=== PATIENT | male | born 1990 | race Caucasian/White ===

== ENCOUNTER 2022-10-09 17:55 | Emergency (ER) | payer OTHER ==
--- OUTSIDE RECORDS SUMMARY | 2022-10-09 18:00 | XMS REPORT | Continuity of Care Document ---
:[address] [facility] t Address [address] [place] [address] [address] [place] [address] Care Team Providers Name Role Phone Mercedes Joaquim Saldana Primary Care Physician HARDEEP PARK Attending Clinician Unavailable Mirella RIZO Attending Clinician Unavailable Mirella Gonzalez Attending Clinician Doctor Unassigned, [place] Attending Clinician Unavailable Janelle Pierre RN Attending Clinician Unavailable Only, Ang Db Test Attending Clinician Unavailable Chetan Mckee Attending Clinician CHETAN JARA Attending Clinician Unavailable ADRIANO JACOBS Attending Clinician Unavailable Adriano Jacobs Attending Clinician Mirella RIZO Admitting Clinician Unavailable Payers Payer Name Policy Type Policy Number Effective Date Expiration Date Ashleigh SAG[employer]UME [place] [id number] 2021 [employer]OYEE-[employer] 00:00:00 Problems Condition Condition Condition Status Onset Resolution Last Treating Co mments Source Name Details Category Date Date Treatment Clinician Date UNK UNK Diagnosis Active 2021-07-13 Mem oria Active 05-19 09:34:00 l 05/19/2021 00:00: Dani n [address] Sleep Sleep Problem Active Common disturbanc disturbanc Sp ruth e e - [facility] Essential Essential Problem Active Com mon (primary) (primary) Spir it hypertensi hypertensi - [facility] on on [facility] ADHD ADHD Diagnosis Active 2018-01-11 Mem oria (attention (attention 05:37:03 l deficit deficit [place] hyperactiv hyperactiv ity ity disorder), disorder), combined combined type type Active Diagnosis 01/11/2018 eCW: Fani Cruz MD, PA Hyperlipid Problem Active 2021-05-29 emoria emia Hyperlipid 07:46:50 l (disorder) emia Dani n (disorder) Active Problem 05/29/2021 [facility] Hypertensi Hypertens Problem Active 2021-05-29 Memoria ve justin 07:46:50 l disorder, disorder, Herm denilson systemic systemic arterial arterial (disorder) (disorder) Active Problem 05/29/2021 [facility] GERD GERD Problem Active Common without without Spirit esophagiti esophagiti - [facility] s [facility] Attention Attention Problem Active Com mon deficit deficit Spirit hyperactiv hyperactiv - [facility] ity ity [facility] disorder disorder [facility] (ADHD), (ADHD), Medical unspecifie unspecifie Ce nter d ADHD d ADHD type type Seasonal Seasonal Problem Active Commo n allergies allergies Spir [facility] History of History of Problem Active C ommon anxiety anxiety [facility] Allergies, Adverse Reactions, Alerts Allergy Allergy Status Severity Reaction(s) Onset Inactive Treating Comm ents Source Name Type Date Date Clinician Sulfa Sulfa Active as a child Memori a 3-26 l 00:00: [place] 00 SULFA Drug Active Unknown-Cmnt Univ ers (SULFONA Class 3-27 ity of MIDE 00:00: [place] ANTIBIOT 00 Medical ICS) Branch Sulfa Propensi Active Unknown - Unive rs (Sulfona ty to See comments 3-27 it y of mide adverse 00:00: [place] Antibiot reaction 00 Medica l ics) s Branch sulfa sulfa Active Memoria drugs drugs l [place] NO KNOWN Drug Active Univers ALLERGIE Class ity of [facility] Sulfa Adverse Active Info Not Common Reaction Available Spiri t - [facility] Social History Social Habit Start Date Stop Date Quantity Comments Source Exposure to 2021-11-18 2021-11-28 Not sure [facility] SARS-CoV-2 (event) 00:00:00 20:32:00 Medica l Branch Social History 2021-05-23 2021-05-23 [facility] 13:25:37 13:25:37 Sex Ass[birth year] At [birth year] [facility] 00:00:00 00:00:00 Medical Branch Smoking Status Start Date Stop Date Source Tobacco smoking consumption [facility] Medical unknown Branch Medications Ordered Filled Start Stop Current Ordering Indication Dosage Frequency Signature Comments Components Source Medication Medication Date Date Medication? Clinician (SIG) Name Name methylpredn 2021-02 No 125mg 125 mg, U nivers isolone sod 11-29 Slow IV ity of succ 02:30: 01:23 Push, [place] (SOLU-MEDRO 00 :00 ONCE, 1 Medic al L) dose, On Branch injection Tue 125 mg 11/28/21 at 2130, ABILIO maalox:diph 2021-02 No 15mL 15 mL, Uni vers enhydrAMINE 11-29 Oral ity of :lidocaine 01:30: 00:22 [place] % viscous 00 :00 Swallow), Med ical 1:1:1 ONCE, 1 Branch (FIRST-MOUT dose, On HWASH BLM) Tue oral 11/28/21 suspension at 2030, 15 mL Routine ketorolac 2021-02 No 15mg 15 mg, Unive rs (TORADOL) 11-28 Slow IV ity of injection 00:30: 23:52 [place], [place] 15 mg 00 :00 ONCE, 1 Medical dose, On Branch 11/28/21 at 1930, ABILIO predniSONE 2021-02 Yes [id number] 1 PO BID x Univers 20 mg 0-11 4 days ity of tablet 00:00: [place] 00 Medical Branch Dilaudid No 0.5 mg, Memori a - Route: l 19:15: IVP, ONCE, Ernesto Dosing Weight 138.182, kg, Priority: STAT, Start date: 05/25/21 14:15:00 CDT, Stop date: 05/25/21 14:15:00 CDT Dilaudid 2021-0 No 0.5 mg, Memori a 05-25 Route: l 19:15: IVP, ONCE, Dosing Weight 138.182, kg, Priority: STAT, Start date: 05/25/21 14:15:00 CDT, Stop date: 05/25/21 14:15:00 CDT hydromorpho 2021-0 No 0.5 mg, Mem oria ne 05-25 Route: l 18:31: IVP, ONCE, Dosing Weight 138.182, kg, Priority: STAT, Start date: 05/25/21 13:31:00 CDT, Stop date: 05/25/21 13:31:00 CDT hydromorpho 2021-0 No 0.5 mg, Mem oria ne 05-25 Route: l 18:31: IVP, ONCE, Dosing Weight 138.182, kg, Priority: STAT, Start date: 05/25/21 13:31:00 CDT, Stop date: 05/25/21 13:31:00 CDT ANES 2021-0 No 25 Memoria fentaNYL - microgram, l 18:19: Route: IVP, Q5Min, Dosing Weight 138.182, kg, PRN Pain Score 4-6, Priority: Routine, Start date: 05/25/21 13:19:00 CDT, Duration: 4 doses or times, Stop date: Limited # of times ANES 2021-0 No 10 mg, Memoria oxyCODONE 5 05-25 Route: PO, l mg 18:19: Drug form: [place] immediate 00 TAB, Q4H, release Dosing tablet Weight 138.182, kg, PRN Pain Score 7-10, Start date: 05/25/21 13:19:00 CDT, Duration: 30 day, Stop date: 06/24/21 13:18:00 CDT ANES 2021-0 No 0.2 mg, Memoria flumazenil 05-25 Route: l 18:19: IVP, PRN, Dosing Weight 138.182, kg, PRN Benzodiaze pine Reversal, Initial dose, Start date: 05/25/21 13:19:00 CDT, Duration: 30 day, Stop date: 06/24/21 13:18:00 CDT ANES 0 No 0.4 mg, Memoria naloxone - Route: l 18:19: IVP, [place] 00 Q2MIN, Dosing Weight 138.182, kg, PRN Narcotic Reversal, Start date: 05/25/21 13:19:00 CDT, Duration: 8 doses or times, Stop date: Limited # of times ANES 0 No 4 mg, Memoria ondansetron 4- Route: l 18:19: IVP, ONCE, [place] 00 Dosing Weight 138.182, kg, PRN Nausea & Vomiting, Start date: 05/25/21 13:19:00 CDT ANES 0 No 25 Memoria fentaNYL 4-07 microgram, l 18:19: Route: Ern[place] 00 IVP, Q5Min, Dosing Weight 138.182, kg, PRN Pain Score 4-6, Priority: Routine, Start date: 05/25/21 13:19:00 CDT, Duration: 4 doses or times, Stop date: Limited # of times ANES 0 No 10 mg, Memoria oxyCODONE 5 4-07 Route: PO, l mg 18:19: Drug form: [place] immediate 00 TAB, Q4H, release Dosing tablet Weight 138.182, kg, PRN Pain Score 7-10, Start date: 05/25/21 13:19:00 CDT, Duration: 30 day, Stop date: 06/24/21 13:18:00 CDT ANES 0 No 0.2 mg, Memoria flumazenil 4- Route: l 18:19: IVP, PRN, [place] 00 Dosing Weight 138.182, kg, PRN Benzodiaze pine Reversal, Initial dose, Start date: 05/25/21 13:19:00 CDT, Duration: 30 day, Stop date: 06/24/21 13:18:00 CDT ANES 0 No 0.4 mg, Memoria naloxone 05-25 Route: l 18:19: IVP, [place] 00 Q2MIN, Dosing Weight 138.182, kg, PRN Narcotic Reversal, Start date: 05/25/21 13:19:00 CDT, Duration: 8 doses or times, Stop date: Limited # of times ANES 2021-0 No 4 mg, Memoria ondansetron 05-25 Route: l 18:19: IVP, ONCE, Dosing Weight 138.182, kg, PRN Nausea & Vomiting, Start date: 05/25/21 13:19:00 CDT metoclopram 0 No Route: IV, Memoria adams (ANES) 05-25 Drug form: l 18:04: INJ, ONCE, Stop date: 05/25/21 13:04:00 CDT famotidine No Route: IV, M emoria (ANES) 05-25 Drug form: l 18:04: INJ, ONCE, Stop date: 05/25/21 13:04:00 CDT midazolam 2021-0 No Route: IV, Me moria (ANES) 05-25 Drug form: l 18:04: SOLN, ONCE, Stop date: 05/25/21 13:04:00 CDT fentaNYL 2021-0 No Route: IV, Mem oria (ANES) 05-25 Drug form: l 18:04: INJ, ONCE, Stop date: 05/25/21 13:04:00 CDT propofol 2021-0 No Route: IV, Mem oria (ANES) 05-25 Drug form: l 18:04: INJ, ONCE, Stop date: 05/25/21 13:04:00 CDT ceFAZolin No Route: IV, Me moria (ANES) 05-25 Drug form: l 18:04: INJ, ONCE, Stop date: 05/25/21 13:04:00 CDT dexamethaso 2021-0 No Route: IV, Memoria ne (ANES) 05-25 Drug form: l 18:04: INJ, ONCE, Stop date: 05/25/21 13:04:00 CDT ondansetron 2021-0 No Route: IV, Memoria (ANES) 05-25 Drug form: l 18:04: INJ, ONCE, Stop date: 05/25/21 13:04:00 CDT ketOROLAC 2022-0 No IV, ONCE [address] (ANES) 05-25 l 18:04: metoclopram No Route: IV, Memoria adams (ANES) 05-25 Drug form: l 18:04: INJ, ONCE, Stop date: 05/25/21 13:04:00 CDT famotidine No Route: IV, M emoria (ANES) 05-25 Drug form: l 18:04: INJ, ONCE, Stop date: 05/25/21 13:04:00 CDT midazolam No Route: IV, Me moria (ANES) 05-25 Drug form: l 18:04: SOLN, ONCE, Stop date: 05/25/21 13:04:00 CDT fentaNYL No Route: IV, Mem oria (ANES) 05-25 Drug form: l 18:04: INJ, ONCE, Stop date: 05/25/21 13:04:00 CDT propofol No Route: IV, Mem oria (ANES) 05-25 Drug form: l 18:04: INJ, ONCE, Stop date: 05/25/21 13:04:00 CDT ceFAZolin No Route: IV, Me moria (ANES) 05-25 Drug form: l 18:04: INJ, ONCE, Stop date: 05/25/21 13:04:00 CDT dexamethaso No Route: IV, Memoria ne (ANES) 05-25 Drug form: l 18:04: INJ, ONCE, Stop date: 05/25/21 13:04:00 CDT ondansetron No Route: IV, Memoria (ANES) 05-25 Drug form: l 18:04: INJ, ONCE, Stop date: 05/25/21 13:04:00 CDT ketOROLAC No IV, ONCE [address] (ANES) 05-25 l 18:04: Ern[place] 00 Lactated No Route: IV, Mem oria Ring[place] 05-25 Total l Injection 17:23: Volume: Sabiha nn IV (ANES) 00 1,000, 1000 mL Start date: 05/25/21 12:23:00 CDT, Stop date: 05/25/21 13:23:00 CDT Lactated 0 No Route: IV, Mem oria Ring[place] 4-07 Total l Injection 17:23: Volume: Sabiha nn IV (ANES) 00 1,000, 1000 mL Start date: 05/25/21 12:23:00 CDT, Stop date: 05/25/21 13:23:00 CDT [place] 2021-0 Yes 1 tab, PO, Memori a 10/325 oral 4-07 Q6H, 0 l tablet 14:21: Refill(s) Dani n 00 [place] 2021-0 Yes 1 tab, PO, Memori a 10/325 oral 4-07 Q6H, 0 l tablet 14:21: Refill(s) Dani n 00 Keflex 0 Yes PO, 0 Memoria 4-07 Refill(s) l 14:20: Ern[place] 00 Keflex 0 Yes PO, 0 Memoria 4-07 Refill(s) l 14:20: [place] 00 Lactated 0 No 1,000 mL, [address] Ringers 4-07 Rate: 75 l Injection 14:18: ml/hr, Dani n IV 1000 mL 00 Infuse over: 13.3 hr, Route: IV, Dosing Weight 138.182 kg, Total Volume: 1,000, Start date: 05/25/21 9:18:00 CDT, Duration: 30 day, Stop date: 06/24/21 9:17:00 CDT, BSA: 2.71 m2 Lactated 0 No 1,000 mL, [address] Ring[place] 4-07 Rate: 75 l Injection 14:18: ml/hr, Dani n IV 1000 mL 00 Infuse over: 13.3 hr, Route: IV, Dosing Weight 138.182 kg, Total Volume: 1,000, Start date: 05/25/21 9:18:00 CDT, Duration: 30 day, Stop date: 06/24/21 9:17:00 CDT, BSA: 2.71 m2 non-formula 0 Yes PROFIDREN, Memoria ry 4-05 Refill(s) l 13:29: 0 [place] 00 non-formula Yes PROFIDREN, Ruslanoria ry 4-05 Refill(s) l 13:29: 0 [place] 00 non-formula Yes BISJosh REA emoria ry 4-05 PO, Daily, l 13:27: Refill(s) Ernesto 0 Crestor 2021-0 Yes PO, Daily, [address] 4-05 0 l 13:27: Refill(s) Ern[place] 00 non-formula Yes BISTOLICJosh emoria ry 4-05 PO, Daily, l 13:27: Refill(s) Ernesto 0 Crestor 2021-0 Yes PO, Daily, [address] 4-05 0 l 13:27: Refill(s) Lisinopril Lisinopril Yes Frank 1 tablet Common 2-20 Darrick Spirit 00:00: - [facility] 00 [facility] Adderall 2017-02 Yes AMANDO 1 tablet Me moria 1-24 FLETCHER in the l 05:37: morning Adderall 2017-02 Yes AMANDO 1 tablet Me moria 1-24 FLECTHER in the l 05:37: morning Fluticasone Fluticasone Yes Frank 1 spray in Common Propionate Propionate 8-28 Darrick each Sp ruth 00:00: nostril - [facility]I 00 [facility] cyclobenzap 2015-0 Yes 5mg Take 1 Tab Univers rine 3-27 by mouth 3 ity of (FLEXERIL) 00:00: (three[place] 5 mg tablet 00 times Medical daily. Branch proMETHazin Yes 25mg Take 1 Tab Univers e 3-27 by mouth ity of (PHENERGAN) 00:00: every 6 Lexa as 25 mg 00 (six) Medical tablet hours as Branch needed for Nausea and Vomiting (N/V). traMADOL Yes 50mg Take 1 Tab Uni vers (ULTRAM) 50 3-27 by mouth ity of mg tablet 00:00: every 6 [place] 00 (six) Medical hours as Branch needed for Pain (scale 4-6). Maikel Lebron PA-C / Ba Lentz MD CHAI# [id number] DPS# [id number] x Lic.# [id number] NPI# [id number] cyclobenzap 2016-0 Yes 5mg Take 1 Tab Univers rine 3-27 by mouth 3 ity of (FLEXERIL) 00:00: (three) [place] 5 mg tablet 00 times Medical daily. Branch proMETHazin 2015-0 Yes 25mg Take 1 Tab Univers e 3-27 by mouth ity of (PHENERGAN) 00:00: every 6 Lex[place] as 25 mg 00 (six) Medical tablet hours as Branch needed for Nausea and Vomiting (N/V). traMADOL 0 Yes 50mg Take 1 Tab Uni vers (ULTRAM) 50 3-27 by mouth ity of mg tablet 00:00: every 6 [place] 00 (six) Medical hours as Branch needed for Pain (scale 4-6). 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 sity of pressure [facility] Diastolic blood 2021-11-28 23:37:00 90 mm[Hg] [facility] Heart rate 2021-11-28 23:37:00 82 /min [facility] Respiratory rate 2021-11-28 23:37:00 20 /min [facility] Oxygen saturation in 2021-11-28 23:37:00 96 /min [facility] Arterial blood by [facility] Pulse oximetry Branch Body temperature 2021-11-28 21:15:00 36.94 Aarti [facility] Body height 2021-11-28 21:15:00 188 cm [facility] Body weight 2021-11-28 21:15:00 136.079 kg [facility] BMI 2021-11-28 21:15:00 38.52 kg/m2 [facility] Systolic (mm Hg) 2021-05-25 19:30:00 Edvin rial [place] Diastolic (mm Hg) 2021-05-25 19:30:00 Mem orial [place] Systolic (mm Hg) 2021-05-25 19:00:00 Edvin rial Ernesto Diastolic (mm Hg) 2021-05-25 19:00:00 Mem orial Ernesto Systolic (mm Hg) 2021-05-25 18:45:00 Edvin rial Ernesto Diastolic (mm Hg) 2021-05-25 18:45:00 Mem orial Ernesto Respitory Rate 2021-05-25 18:38:00 Memori al [place] Respitory Rate 2021-05-25 18:23:00 Memori al Ernesto Respitory Rate 2021-05-25 18:06:00 Memori al Ernesto Heart Rate 2021-05-25 14:22:00 Memorial [place] Height 2021-05-23 12:22:00 187.96 cm [facility] [place] Weight 2021-05-23 12:22:00 Memorial Ernesto BMI Calculated 2021-05-23 12:22:00 Memori al Ernesto Diastolic (mm Hg) 2017-05-13 15:30:00 Mem orial Ernesto Systolic (mm Hg) 2017-05-13 15:30:00 Edvin rial Ernesto Temperature Oral (F) 2017-05-13 15:30:00 97.0 F Memorial Ernesto Weight 2017-05-13 15:30:00 Memorial Ernesto Height 2017-05-13 15:30:00 Memorial Ernesto Diastolic (mm Hg) 2017-01-08 20:30:00 Mem orial Ernesto Systolic (mm Hg) 2017-01-08 20:30:00 Edvin rial [place] Temperature Oral (F) 2017-01-08 20:30:00 98 F Memorial Ernesto Heart Rate 2017-01-08 20:30:00 [facility] [place] Weight 2017-01-08 20:30:00 Memorial Ernesto Height 2017-01-08 20:30:00 [facility] [place] Procedures Procedure Date / Time Performed Performing Clinician Sourc e XR CHEST 1 VW 2021-11-28 22:43:00 Mirella Rizo [place] o f [facility] MAGNESIUM 2021-11-28 21:59:00 Mirella Rizo Alice [place] o [facility] [place] [facility] TROPONIN I 2021-11-28 21:59:00 Mirella Rizo Alice [facility] COMP. METABOLIC PANEL 2021-11-28 21:59:00 Mirella Rizo [facility] ([id number]) Medical Branch CBC WITH DIFF 2021-11-28 21:59:00 Mirella Rizo Alice [facility] D-DIMER 2021-11-28 21:59:00 Mirella Rizo [facility] URINALYSIS 2021-11-28 21:59:00 Mirella Rizo [facility] N-TERMINAL PRO-BNP 2021-11-28 21:59:00 Mirella Rizo [facility] CONSENT/REFUSAL FOR 2021-11-28 20:57:00 Doctor Unakamilleigned, No Un [facility] DIAGNOSIS AND Name Medical Branch TREATMENT Encounters Start End Encounter Admission Attending Care Care Encounter Source Date/Time Date/Time Type Type Clinicians Facility Department ID 2021-05-16 Outpatient [facility] [id number] [place] 16:54:50 [id number] Health 2022-01-03 2022-01-03 Outpatient Robbin [facility] [id number] Univers 09:20:00 09:20:00 HARDEEP khannay o [facility] [place] [facility] 2021-11-28 2021-11-28 Emergency X Mirella RIZO [facility] ERT [id number] Univers 16:21:00 20:34:00 ity of [facility] 2021-11-28 2021-11-28 Emergency Mirella Rizo [facility] [id number] Univers 16:21:00 20:34:00 Alice COYLE 350.1.13.10 i ty of [facility] 4.2.7.2.686 [facility] [id number] [facility] 084 Branch 2021-11-28 2021-11-28 Orders Doctor MCMANUS [id number] Univers 00:00:00 00:00:00 Only UnassignedRIC 350.1.13.10 ity of [place] [facility] 4.2.7.2.686 Lexa as [id number] [facility] 009 [place] 2021-08-10 2021-08-10 Telephone MARIETTA Pierre [id number] Univers 00:00:00 00:00:00 Janelle LARIOS 350.1.13.10 i ty of HOSPITAL 4.2.7.2.686 Lexa as [id number] [facility] 019 [place] 2021-08-08 2021-08-08 Laboratory Only, Ang Db Test [facility] 1.2.8 [id number] Univers 15:15:00 15:30:00 Only Chetan Jara [facility] 350.1.13.10 ity of [place] 4.2.7.2.686 Lexa as TYLER?BLEA [id number] [address] MEDICAL OFFICE BUILDING 2021-08-08 2021-08-08 Outpatient R JONG [facility] [id number] Univers 15:15:00 15:15:00 CHETAN lopez o f [facility] 2021-08-08 2021-08-08 Letter Doctor MARIETTA [id number] Univers 00:00:00 00:00:00 (Out) UnassignedRIC 350.1.13.10 ity of [place] [facility] 4.2.7.2.686 Lexa as [id number] [facility] 044 [place] 2021-08-08 2021-08-08 Letter Doctor MARIETTA [id number] Univers 00:00:00 00:00:00 (Out) UnassignedRIC 350.1.13.10 ity of [place] [facility] 4.2.7.2.686 Lexa as [id number] [facility] 044 [place] 2021-05-25 2021-05-25 Day [facility] [id number] Memoria 13:32:00 20:00:00 Surgery r [place] 00 l [facility] 2021-05-25 2021-05-25 Day [facility] [id number] Memoria 13:32:00 20:00:00 Surgery r Ern[place] 00 l [facility] 2021-05-25 2021-05-25 Outpatient JACOBS, MHSE MHSE [id number] MH 08:32:00 15:00:00 ADRIANO lazo [facility] 2021-05-25 2021-05-25 Outpatient Jacobs, MHSE MHSE [id number] 08:32:00 15:00:00 Adriano Oakes 2021-05-25 2021-05-25 Outpatient Jacobs, MHSE MHSE [id number] 08:32:00 15:00:00 Adriano Oakes 2018-08-18 2018-08-18 Outpatient [facility] [id number] Common 09:45:00 09:45:00 t [facility] [address] [facility] it Road [facility] 2018-06-09 2018-06-09 Outpatient [facility] [id number] Common 10:15:00 10:15:00 t [facility] [address] [facility] it Road [facility] 2018-04-09 2018-04-09 Outpatient [facility] [id number] Common 13:15:00 13:15:00 t [facility] it Road [facility] 2018-02-06 2018-02-06 Outpatient [facility] [id number] Common 10:00:00 10:00:00 t [facility] it Road [facility] 2018-02-03 2018-02-03 Outpatient [facility] [id number] Common 16:31:00 16:31:00 t [facility] [address] [facility] it Road [facility] 2017-10-15 2017-10-15 Outpatient [facility] [id number] Common 14:00:00 14:00:00 t [facility] [address] [facility] it Road [facility] 2017-05-13 2017-05-13 Outpatient Fani Fani [id number] eClinic 09:30:00 09:30:00 Anthony Otoole MD 2017-01-16 2017-01-16 Outpatient Fani Fani [id number] eClinic 08:39:00 08:39:00 Anthony Otoole MD 2017-01-08 2017-01-08 Outpatient Fani Fani [id number] eClinic 14:30:00 14:30:00 Anthony Otoole MD Results Test Description Test Time Test Comments Results Result Comments Source TROPONIN I 2021-11-28 22:48:12 Test Item Value Reference Range Interpretation Comme nts TROPONIN I (test code = 0.003 ng/mL See_Comment [Au tomated message] The [id number]) system which ge nerated this result tra nsmitted reference range : <=0.034. The reference r thalia was not used to int erpret this result as normal/abnormal . NEGRITO (test code = NEGRITO) Reference (Normal) Range (defined by the 99th percentile reference limit): <= 0.034 ng/mL Note: Cardiac troponin begins to rise 3-4 hours after the onset of ischemia. Repeat in 4-6 hours if the sample was drawn within 3-4 hours of the onset of the symptom and found normal. Diagnosis of myocardial injury is made with acute changes in cTn concentrations with at least one serial sample above the 99th percentile upper reference limit (URL), taken together with the patient's clinical presentation. Biotin has been reported to cause a negative bias, interpret results relative to patient's use of biotin. Lab Interpretation Normal (test code = 50382-8) [facility] [place] [facility] [id number] 22:44:51 Test Item Value Reference Range Interpretation Comments NT-proBNP (test code 18 pg/mL See_Comment [Autom ated = [id number]) message] The system which generated this result transmitted reference range : <=125. The reference range was not used to interpret this result as normal/abnormal . NEGRITO (test code = NEGRITO) Biotin has been reported to cause a negative bias, interpret results relative to patient's use of biotin. Lab Interpretation Normal (test code = 24904-3) [facility] [place] [facility]OLIC PANEL ([id number])2021-11-28 22:36:07 Test Item Value Reference Range Interpretation Comments NA (test code = 139 mmol/L 135-145 6347435703) K (test code = 4.4 mmol/L 3.5-5 2243616269) CL (test code = 102 mmol/L 98-108 5874854390) CO2 TOTAL (test code 26 mmol/L 23-31 = 0762081939) AGAP (test code = 2-16 0866005789) BUN (test code = 12 mg/dL 7-23 7917878821) GLUCOSE (test code = 85 mg/dL 70-110 3869724631) CREATININE (test code 0.87 mg/dL 0.6-1.25 = 7666602012) TOTAL BILI (test code 0.6 mg/dL 0.1-1.1 = 2751589728) CALCIUM (test code = 9.7 mg/dL 8.6-10.6 8625126241) T PROTEIN (test code 7.4 g/dL 6.3-8.2 = 8122362388) ALBUMIN (test code = 4.6 g/dL 3.5-5 4044813894) ALK PHOS (test code = 81 U/L 34-122 2160023369) ALTv (test code = 39 U/L 5-50 1742-6) AST(SGOT) (test code 28 U/L 13-40 = 1301948030) eGFR (test code = mL/min/1.73m2 6705685826) NEGRITO (test code = NEGRITO) Association of Glomerular Filtration Rate (GFR) and Staging of Kidney Disease* + + +- +| GFR (mL/min/1.73 m2) ?| With Kidney Damage ?| ?Without Kidney Damage+ ------+ ----+ ------+| ?>90 ?| ?Stage one ?| ? Normal ?+ -+ + -+| ?60-89 ?| ?Stage two ?| ? Decreased GFR ? + + +- +| ?30-59 ?| ?Stage three ?| ? Stage three ? + + +- +| ?15-29 ?| ?Stage four ? | ? Stage four ?+ -+ + -+| ?<15 (or dialysis) ? ?| ?Stage five ? | ? Stage five ?+ -+ + -+ *Each stage assumes the associated GFR level has been in effect for at least three months. ?Stages 1 to 5, with or without kidney disease, indicate chronic kidney disease. Notes: Determination of stages one and two (with eGFR >59mL/min/1.73 m2) requires estimation of kidney damage for at least three months as defined by structural or functional abnormalities of the kidney, manifested by either:Pathological abnormalities or Markers of kidney damage (including abnormalities in the composition of the blood or urine or abnormalities in imaging tests). [facility] 22:36:07 Test Item Value Reference Range Interpretation Comments MAGNESIUM (test code = 4183544663) 1.9 mg/dL 1.7-2.4 Lab Interpretation (test code = Normal 66059-6) [facility]D-WGAIO5496-68-59 22:30:51 Test Item Value Reference Interpretation Comments Range D-DIMER (test code = See_Comment [Autom ated [id number]) message] The system which generated this result transmitted reference range : <0.41 ?g/mL (FEU). The reference range was not used to interpret this result as normal/abnormal . NEGRITO (test code = This test may be NEGRITO) used in conjunction with a clinical pretest probability (PTP) assessment model to exclude venous thromboembolism (VTE) in patients suspected of deep venous thrombosis (DVT) and pulmonary embolism (PE) A D-Dimer value less than 0.50 ?g/ml (FEU) has a negative predicative value of 96 to 100% (95% CI)and 97 to 100% (95% CI) as an aid in the diagnosis of deep vein thrombosis (DVT) and pulmonary embolism when there is low or moderate pretest probability of PE or DVT. D-Dimer values are expressed in initial fibrinogen equivalent units (FEU)" The assay results should be used with other information, including the clinical context, in forming a diagnosis. Lab Interpretation Normal (test code = 69160-3) [facility] WITH [id number] 22:11:06 Test Item Value Reference Range Interpretation Comments WBC (test code = See_Comment [Automated 9690-2) message] The sy stem which generated this result transmitted reference range : 4.20 - 10.70 10*3/?L. The reference range was not used to interpret this result as normal/abnormal . RBC (test code = See_Comment H [Automated 709-8) message] The sy stem which generated this result transmitted reference range : 4.26 - 5.52 10*6/?L. The reference range was not used to interpret this result as normal/abnormal . HGB (test code = 16.0 g/dL 12.2-16.4 718-7) HCT (test code = 47.4 % 38.4-49.3 4544-3) MCV (test code = 84.5 fL 81.7-95.6 787-2) MCH (test code = 28.5 pg 26.1-32.7 785-6) MCHC (test code = 33.8 g/dL 31.2-35 786-4) RDW-SD (test code = 39.0 fL 38.5-51.6 57958-6) RDW-CV (test code = 12.8 % 12.1-15.4 788-0) PLT (test code = See_Comment [Automated 777-3) message] The sy stem which generated this result transmitted reference range : 150 - 328 10*3/ ?L. The reference r thalia was not used to interpret this result as normal/abnormal . MPV (test code = 9.8 fL 9.8-13 66290-2) NRBC/100 WBC (test See_Comment [Automat ed code = [id number]) message] The system which generated this result transmitted reference range : 0.0 - 10.0 /100 WBCs. The refer ence range was not u sed to interpret th is result as normal/abnormal . NRBC x10^3 (test code See_Comment [Auto mated = [id number]) message] The s ystem which generated this result transmitted reference range : 10*3/?L. The reference range was not used to interpret this result as normal/abnormal . GRAN MAT (NEUT) % 45.1 % (test code = 770-8) IMM GRAN % (test code 0.20 % = 3341495313) LYMPH % (test code = 41.3 % 736-9) MONO % (test code = 10.0 % 5905-5) EOS % (test code = 2.9 % 713-8) BASO % (test code = 0.5 % 706-2) GRAN MAT x10^3(ANC) 3.74 10*3/uL 1.99-6.95 (test code = 6736498741) IMM GRAN x10^3 (test 0-0.06 code = 1480097822) LYMPH x10^3 (test code 3.43 10*3/uL 1.09-3.23 H = 731-0) MONO x10^3 (test code 0.83 10*3/uL 0.36-1.02 = 742-7) EOS x10^3 (test code = 0.24 10*3/uL 0.06-0.53 711-2) BASO x10^3 (test code 0.04 10*3/uL 0.01-0.09 = 704-7) Lab Interpretation Abnormal (test code = 15256-4) [facility]2022-04-05 13:38:00 Test Item Value Reference Range Interpretation Comments Glucose Lvl (test code = Glucose Lvl) 94 70-99 [place] 735922-04-05 13:38:00 Test Item Value Reference Range Interpretation Comments BUN (test code = BUN) 13 7-22 [place] 735922-04-05 13:38:00 Test Item Value Reference Range Interpretation Comments Creatinine Lvl (test code = Creatinine 0.84 0.50-1.40 Lvl) [facility]2022-04-05 13:38:00 Test Item Value Reference Range Interpretation Comments Sodium Lvl (test code = Sodium Lvl) 142 135-145 [place] 735922-04-05 13:38:00 Test Item Value Reference Range Interpretation Comments Potassium Lvl (test code = Potassium 4.2 3.5-5.1 Lvl) [place] 735922-04-05 13:38:00 Test Item Value Reference Range Interpretation Comments Chloride Lvl (test code = Chloride Lvl) 109 95-109 [place] 735922-04-05 13:38:00 Test Item Value Reference Range Interpretation Comments CO2 (test code = CO2) 30 24-32 [place] 735922-04-05 13:38:00 Test Item Value Reference Range Interpretation Comments Calcium Lvl (test code = Calcium Lvl) 8.8 8.5-10.5 [place] 735922-04-05 13:38:00 Test Item Value Reference Range Interpretation Comments AGAP (test code = AGAP) 7.2 10.0-20.0 [facility]2022-04-05 13:38:00 Test Item Value Reference Range Interpretation Comments eGFR (test code = eGFR) 116 [facility]VjcudofMOZQWDNRSU4483-49-60 13:38:00 Test Item Value Reference Range Interpretation Comments WBC (test code = WBC) 7.3 3.7-10.4 [facility] HospitalWyjklhfKIMZUMZKFC8839-39-79 13:38:00 Test Item Value Reference Range Interpretation Comments RBC (test code = RBC) 5.16 4.70-6.10 [facility] HospitalXbtwfmqSBVLIJVHCJ4666-82-46 13:38:00 Test Item Value Reference Range Interpretation Comments Hgb (test code = Hgb) 14.8 14.0-18.0 [place] 728882-04-05 13:38:00 Test Item Value Reference Range Interpretation Comments Hct (test code = Hct) 44.1 42.0-54.0 [facility] HospitalVidtrqrHEPJKTLZKO4104-34-78 13:38:00 Test Item Value Reference Range Interpretation Comments MCV (test code = MCV) 85.5 80.0-94.0 [facility] HospitalUkkwfwkXFRAXXUUWB7010-78-22 13:38:00 Test Item Value Reference Range Interpretation Comments MCH (test code = MCH) 28.7 pg 27.0-31.0 [facility] HospitalOzqjjpwDTNIMHCMOX2797-86-42 13:38:00 Test Item Value Reference Range Interpretation Comments MCHC (test code = MCHC) 33.6 32.0-36.0 [facility] HospitalDafqwmwDKNBQBPHZW3786-02-12 13:38:00 Test Item Value Reference Range Interpretation Comments RDW (test code = RDW) 13.6 11.5-14.5 [facility] HospitalUfthpwgEBXVFGQWPF4288-89-21 13:38:00 Test Item Value Reference Range Interpretation Comments Platelet (test code = Platelet) 238 133-450 [facility] HospitalRwexfhaEEUQXKZBYW4427-16-37 13:38:00 Test Item Value Reference Range Interpretation Comments MPV (test code = MPV) 8.2 7.4-10.4 [place] 728882-04-05 13:38:00 Test Item Value Reference Range Interpretation Comments Segs (test code = Segs) 50.8 45.0-75.0 [facility] HospitalQzzuytuTELVRIWPUL1702-59-81 13:38:00 Test Item Value Reference Range Interpretation Comments Lymphocytes (test code = Lymphocytes) 37.7 20.0-40.0 [facility] HospitalEpvtvqdUTYVTCCZTS6730-42-26 13:38:00 Test Item Value Reference Range Interpretation Comments Monocytes (test code = Monocytes) 8.2 2.0-12.0 [facility] HospitalOajopcfEGXHSIALLE4323-19-78 13:38:00 Test Item Value Reference Range Interpretation Comments Eosinophils (test code = 2.9 See_Comment [A utomated message] The Eosinophils) system which ge nerated this result tra nsmitted reference range : <=4.0. The reference r thalia was not used to int erpret this result as normal/abnormal . [facility] HospitalWdlpyasTVJVYYYEFP4336-56-73 13:38:00 Test Item Value Reference Range Interpretation Comments Basophils (test code = 0.4 See_Comment [Aut omated message] The Basophils) system which ge nerated this result tra nsmitted reference range : <=1.0. The reference r thalia was not used to int erpret this result as normal/abnormal . [facility] HospitalZzumotgGLIJFHXVXZ7418-61-52 13:38:00 Test Item Value Reference Range Interpretation Comments Neutrophils # (test code = Neutrophils 3.7 1.5-8.1 #) [facility] HospitalYxjmkbrHYRQGHDBMJ0164-63-87 13:38:00 Test Item Value Reference Range Interpretation Comments Lymphocytes # (test code = Lymphocytes 2.7 1.0-5.5 #) [facility] HospitalIzgcbbfJFCNUTQQWB7160-15-46 13:38:00 Test Item Value Reference Range Interpretation Comments Monocytes # (test code 0.6 See_Comment [Aut omated message] The = Monocytes #) system which generated this result tra nsmitted reference range : <=0.8. The reference r thalia was not used to int erpret this result as normal/abnormal . [facility] HospitalPimbmoqFULIESTXFW2446-50-00 13:38:00 Test Item Value Reference Range Interpretation Comments Eosinophils # (test code 0.2 See_Comment [A utomated message] The = Eosinophils #) system whic h generated this result tra nsmitted reference range : <=0.5. The reference r thalia was not used to int erpret this result as normal/abnormal . [facility]rorjmvHIZFLKIEVS2137-84-40 13:38:00 Test Item Value Reference Range Interpretation Comments Coronavirus (COVID-19) Not Detected (4/5/22 JUVENAL (test code = 8:38 AM) Coronavirus (COVID-19) JUVENAL) [facility]2022-04-05 13:38:00 Test Item Value Reference Range Interpretation Comments Glucose Lvl (test code = Glucose Lvl) 94 70-99 [place] 735922-04-05 13:38:00 Test Item Value Reference Range Interpretation Comments BUN (test code = BUN) 13 - [place] 735922-04-05 13:38:00 Test Item Value Reference Range Interpretation Comments Creatinine Lvl (test code = Creatinine 0.84 0.50-1.40 Lvl) [place] 735922-04-05 13:38:00 Test Item Value Reference Range Interpretation Comments Sodium Lvl (test code = Sodium Lvl) 142 135-145 [place] 735922-04-05 13:38:00 Test Item Value Reference Range Interpretation Comments Potassium Lvl (test code = Potassium 4.2 3.5-5.1 Lvl) [place] 735922-04-05 13:38:00 Test Item Value Reference Range Interpretation Comments Chloride Lvl (test code = Chloride Lvl) 109 95-109 [place] 735922-04-05 13:38:00 Test Item Value Reference Range Interpretation Comments CO2 (test code = CO2) 30 24-32 [facility]2022-04-05 13:38:00 Test Item Value Reference Range Interpretation Comments Calcium Lvl (test code = Calcium Lvl) 8.8 8.5-10.5 [place] 735922-04-05 13:38:00 Test Item Value Reference Range Interpretation Comments AGAP (test code = AGAP) 7.2 10.0-20.0 [place] 735922-04-05 13:38:00 Test Item Value Reference Range Interpretation Comments eGFR (test code = eGFR) 116 [facility] HospitalVfjlsgxCXUOBINZBX8725-81-27 13:38:00 Test Item Value Reference Range Interpretation Comments WBC (test code = WBC) 7.3 3.7-10.4 [place] 728882-04-05 13:38:00 Test Item Value Reference Range Interpretation Comments RBC (test code = RBC) 5.16 4.70-6.10 [place] 728882-04-05 13:38:00 Test Item Value Reference Range Interpretation Comments Hgb (test code = Hgb) 14.8 14.0-18.0 [place] [address]-04-05 13:38:00 Test Item Value Reference Range Interpretation Comments Hct (test code = Hct) 44.1 42.0-54.0 [place] 728882-04-05 13:38:00 Test Item Value Reference Range Interpretation Comments MCV (test code = MCV) 85.5 80.0-94.0 [place] 728882-04-05 13:38:00 Test Item Value Reference Range Interpretation Comments MCH (test code = MCH) 28.7 pg 27.0-31.0 [place] [address]-04-05 13:38:00 Test Item Value Reference Range Interpretation Comments MCHC (test code = MCHC) 33.6 32.0-36.0 [place] 728882-04-05 13:38:00 Test Item Value Reference Range Interpretation Comments RDW (test code = RDW) 13.6 11.5-14.5 [place] 728882-04-05 13:38:00 Test Item Value Reference Range Interpretation Comments Platelet (test code = Platelet) 238 133-450 [facility] HospitalKkeelzzMECWEVGWCK5275-51-10 13:38:00 Test Item Value Reference Range Interpretation Comments MPV (test code = MPV) 8.2 7.4-10.4 [place] [address]-04-05 13:38:00 Test Item Value Reference Range Interpretation Comments Segs (test code = Segs) 50.8 45.0-75.0 [place] 728882-04-05 13:38:00 Test Item Value Reference Range Interpretation Comments Lymphocytes (test code = Lymphocytes) 37.7 20.0-40.0 [place] [address]-04-05 13:38:00 Test Item Value Reference Range Interpretation Comments Monocytes (test code = Monocytes) 8.2 2.0-12.0 [place] [address]-04-05 13:38:00 Test Item Value Reference Range Interpretation Comments Eosinophils (test code = 2.9 See_Comment [A utomated message] The Eosinophils) system which ge nerated this result tra nsmitted reference range : <=4.0. The reference r thalia was not used to int erpret this result as normal/abnormal . [facility] HospitalPfyewnbQRRMITMWEI7179-12-52 13:38:00 Test Item Value Reference Range Interpretation Comments Basophils (test code = 0.4 See_Comment [Aut omated message] The Basophils) system which ge nerated this result tra nsmitted reference range : <=1.0. The reference r thalia was not used to int erpret this result as normal/abnormal . [facility] HospitalDkhpwvvFYSIUKXWZP3116-07-84 13:38:00 Test Item Value Reference Range Interpretation Comments Neutrophils # (test code = Neutrophils 3.7 1.5-8.1 #) [facility] HospitalTaqugaoVRTKCEXACY2820-22-19 13:38:00 Test Item Value Reference Range Interpretation Comments Lymphocytes # (test code = Lymphocytes 2.7 1.0-5.5 #) [facility] HospitalGywuyknTLUSZFXWDL1951-69-35 13:38:00 Test Item Value Reference Range Interpretation Comments Monocytes # (test code 0.6 See_Comment [Aut omated message] The = Monocytes #) system which generated this result tra nsmitted reference range : <=0.8. The reference r thalia was not used to int erpret this result as normal/abnormal . [facility] HospitalMraipxaRCYNNKLPBP2161-37-40 13:38:00 Test Item Value Reference Range Interpretation Comments Eosinophils # (test code 0.2 See_Comment [A utomated message] The = Eosinophils #) system whic h generated this result tra nsmitted reference range : <=0.5. The reference r thalia was not used to int erpret this result as normal/abnormal . [facility]woodHkskfxgSNICKKODZQ2162-76-80 13:38:00 Test Item Value Reference Range Interpretation Comments Coronavirus (COVID-19) Not Detected (05/23/21 JUVENAL (test code = 8:38 AM) Coronavirus (COVID-19) JUVENAL) [facility]
[2022-10-09 18:47] LABS: Absolute Lymphocytes (CBC) 1.8 K/uL (0.7-4.9); Lymphocytes % 24.3 % (15.3-44.8); MCV 85.2 fL (80-100); MPV 7.8 fL (7.6-11.3); Platelets 250 thou/uL (152-406); RBC Red Blood Cell Count 5.63 M/uL (4.33-5.43)
[2022-10-09 19:07] LABS: Albumin 3.3 g/dL (3.4-5.0); Bilirubin Total 0.3 mg/dL (0.2-1.0); Potassium 3.8 mEq/L (3.5-5.1); Protein, Total 7.2 g/dL (6.4-8.2)
--- NOTE | 2022-10-09 19:07 | RAD REPORT ---
EXAM DESCRIPTION: US - Abdomen Exam Limited - 10/09/2022 6:59 pm CLINICAL HISTORY: ABD PAIN COMPARISON: No comparisons FINDINGS: The gallbladder demonstrates no gallstones. No pericholecystic fluid or gallbladder wall t hickening. The common bile duct is normal measuring 2 mm. The liver demonstrates no findings of intrahepatic biliary dilatation. IMPRESSION: Unremarkable examination.
[2022-10-09 19:31] LABS: Specific Gravity 1.016 (1.005-1.030); Urine Bacteria None Seen /HPF (<20); Urine Bilirubin NEGATIVE (Negative); Urine Blood Negative (Negative); Urine Clarity Turbid (Clear); Urine Color Yellow (Yellow); Urine Crystals Unidentified Few /HPF (None Seen); Urine Glucose NEGATIVE (Negative); Urine Protein NEGATIVE (Negative); Urine RBC <5 /HPF (None Seen); Urine Urobilinogen Normal (Normal); Urine pH 7.5 (5.0-7.0)
--- NOTE | 2022-10-09 19:36 | ER ---
Nurse's Notes [facility] Name: Robin Romero Age: 31 yrs Sex: Male : 1990 Arrival Date: 10/09/2022 Time: 17:55 Bed 14 Private MD: Diagnosis: Upper abdominal pain, unspecified Presentation: 10/09 18:07 Chief complaint: Patient states: LLQ pain since yesterday. RUQ pain x few days, sent aa5 here to have gallbladder checked. Coronavirus screen: At this time, the client does not indicate any symptoms associated with coronavirus-19. Ebola Screen: Patient denies travel to an Ebola-affected area in the 21 days before illness onset. Initial Sepsis Screen: Does the patient meet any 2 criteria? No. Patient's initial sepsis screen is negative. Does the patient have a suspected source of infection? No. Patient's initial sepsis screen is negative. Risk Assessment: Do you want to hurt yourself or someone else? Patient reports no desire to harm self or others. Onset of symptoms was September 2022. 18:07 Acuity: GREG 3 aa5 18:07 Method Of Arrival: Ambulatory aa5 Historical: - Allergies: 18:11 Sulfa (Sulfonamide Antibiotics); aa5 - PMHx: 18:11 Hypertensive disorder; Hypercholesterolemia; acid reflux; ADHD; aa5 - PSHx: 18:11 left hand; aa5 - Immunization history:: Adult Immunizations unknown. - Social history:: Smoking status: Reported history of juuling and/or vaping. Screenin:55 [facility] ED Fall Risk Assessment (Adult) History of falling in the last 3 months, mb9 including since admission No falls in past 3 months (0 pts) Confusion or Disorientation No (0 pts) Intoxicated or Sedated No (0 pts) Impaired Gait No (0 pts) Mobility Assist Device Used No (0 pt) Altered Elimination No (0 pt) Score/Fall Risk Level 0 - 2 = Low Risk Oriented to surroundings, Maintained a safe environment, Educated pt \T\ family on fall prevention, incl call for assistance when getting out of bed. Abuse screen: Denies threats or abuse. Nutritional screening: No deficits noted. Tuberculosis screening: No symptoms or risk factors identified. Assessment: 19:10 General: Appears uncomfortable, Behavior is calm, cooperative. Pain: Complains of pain mb9 in LLQ Pain radiates to right flank Pain currently is 7 out of 10 on a pain scale. Quality of pain is described as throbbing, Pain began 2-3 days ago. Is continuous. Neuro: Gracia Agitation-Sedation Scale (RASS): 0 - Alert and Calm Level of Consciousness is awake, alert, obeys commands, Oriented to person, place, time, situation, Appropriate for age. Cardiovascular: Patient's skin is warm and dry. Respiratory: Airway is patent Respiratory effort is even, unlabored, Respiratory pattern is regular, symmetrical. GI: Abdomen is round obese, Bowel sounds present X 4 quads. Abd is soft Abdomen is tender to palpation in left lower quadrant Reports nausea, Patient currently denies diarrhea. : Denies burning with urination. Derm: Skin is pink, warm \T\ dry. Musculoskeletal: Range of motion: intact in all extremities. Vital Signs: 18:07 BP 161 / 87; Pulse 95; Resp 16 S; Temp 98(TE); Pulse Ox 98% on R/A; Weight 140.16 kg aa5 (M); Height 6 ft. 2 in. (R); 19:12 BP 137 / 79; Pulse 74; Resp 18; Pulse Ox 99% on R/A; mb9 18:07 Body Mass Index 39.67 (140.16 kg, 187.96 cm) aa5 ED Course: 17:58 Patient arrived in ED. im 18:04 Larry Moon DO is Attending Physician. ms3 18:07 Arm band placed on. aa5 18:08 Jinny Boyd FNP-C [facility]. kb 18:09 Triage completed. aa5 18:15 Lashaun Leggett, BOB is Primary Nurse. mb9 18:41 Inserted saline lock: 20 gauge in left antecubital area, using aseptic technique. aw1 18:41 Initial lab(s) drawn, by me, sent to lab. aw1 18:56 Placed in gown. Bed in low position. Call light in reach. Side rails up X 1. Client mb9 placed on continuous cardiac and pulse oximetry monitoring. NIBP monitoring applied. 18:56 No provider procedures requiring assistance completed. mb9 19:00 Abdomen Limited US In Process Unspecified. EDMS 19:37 IV discontinued, intact, bleeding controlled, No redness/swelling at site. Pressure mb9 dressing applied. Administered Medications: No medications were administered Medication: 18:56 VIS not applicable for this client. mb9 Outcome: 19:36 Discharge ordered by MD. lozano 19:44 Discharged to home ambulatory. mb9 19:44 Condition: stable 19:44 Discharge instructions given to patient, Instructed on discharge instructions, follow up and referral plans. Demonstrated understanding of instructions, follow-up care. 19:45 Patient left the ED. mb9 Signatures: Dispatcher [employer] EDMS Jinny Boyd, PSYCHIATRY RESIDENT-C PSYCHIATRY RESIDENT-CkAna Maria Guzman, RN RN aa5 Larry Moon, DO ms3 Lashaun Leggett RN RN mb9 Betty Hall Alyssa aw1
--- NOTE | 2022-10-09 19:36 | EDPHYS ---
Physician Documentation [facility] Name: Robin Romero Age: 31 yrs Sex: Male : 1990 Arrival Date: 10/09/2022 Time: 17:55 Bed 14 Private MD: ED Physician Larry Moon HPI: 10/09 21:16 This 31 yrs old Male presents to ER via Ambulatory with complaints of sent by Dr. lozano 21:16 The patient presents with abdominal pain in the right upper quadrant. Onset: The kb symptoms/episode began/occurred 6 day(s) ago. The symptoms do not radiate. Associated signs and symptoms: Pertinent positives: nausea, Pertinent negatives: fever. The symptoms are described as constant. Modifying factors: The symptoms are alleviated by nothing, the symptoms are aggravated by pressure. Severity of pain: At its worst the pain was moderate in the emergency department the pain is unchanged. The patient has not experienced similar symptoms in the past. The patient has been recently seen by a physician:. Pt reports RUQ pain that started 6 days ago. Was seen at [facility], CT scan done and pt was told he had a 5mm stone in the right kidney, otherwise normal. Pt followed up with PCP, Dr Mercedes, and was told he needed a stat US of gallbladder. Pt scheduled it for tomorrow morning, but his PCP told him he wanted it done tonight so he needed to come to the ER. Historical: - Allergies: 18:11 Sulfa (Sulfonamide Antibiotics); aa5 - PMHx: 18:11 Hypertensive disorder; Hypercholesterolemia; acid reflux; ADHD; aa5 - PSHx: 18:11 left hand; aa5 - Immunization history:: Adult Immunizations unknown. - Social history:: Smoking status: Reported history of juuling and/or vaping. ROS: 21:15 Constitutional: Negative for fever, chills, and weight loss. kb 21:15 Abdomen/GI: Positive for abdominal pain, nausea. 21:15 All other systems are negative. Exam: 21:15 Constitutional: This is a well developed, well nourished patient who is awake, alert, kb and in no acute distress. Head/Face: Normocephalic, atraumatic. ENT: Moist Mucous membranes Cardiovascular: Regular rate and rhythm with a normal S1 and S2. No gallops, murmurs, or rubs. No pulse deficits. Respiratory: Respirations even and unlabored. No increased work of breathing. Talking in full sentences Skin: Warm, dry with normal turgor. Normal color. MS/ Extremity: Pulses equal, no cyanosis. Neurovascular intact. Full, normal range of motion. Neuro: Awake and alert, GCS 15, oriented to person, place, time, and situation. Moves all extremities. Normal gait. 21:15 Abdomen/GI: Inspection: abdomen appears normal, Bowel sounds: normal, Palpation: soft, in all quadrants, mild abdominal tenderness, in the right upper quadrant. Vital Signs: 18:07 BP 161 / 87; Pulse 95; Resp 16 S; Temp 98(TE); Pulse Ox 98% on R/A; Weight 140.16 kg aa5 (M); Height 6 ft. 2 in. (R); 19:12 BP 137 / 79; Pulse 74; Resp 18; Pulse Ox 99% on R/A; mb9 18:07 Body Mass Index 39.67 (140.16 kg, 187.96 cm) aa5 MDM: 18:08 Patient medically screened. kb 21:16 Differential diagnosis: cholecystitis, Cholelithiasis, gastritis, gastroesophageal kb reflux disease, pancreatitis. Data reviewed: vital signs, nurses notes. Counseling: I had a detailed discussion with the patient and/or guardian regarding the historical points, exam findings, and any diagnostic results supporting the discharge/admit diagnosis, lab results, radiology results, the need for outpatient follow up, a family practitioner, a tours captain, to return to the emergency department if symptoms worsen or persist or if there are any questions or concerns that arise at home. 10/09 18:08 Order name: CBC with Diff; Complete Time: 19:06 kb 10/09 18:08 Order name: CMP; Complete Time: 19:10 kb 10/09 18:08 Order name: Lipase; Complete Time: 19:10 kb 10/09 18:08 Order name: Urinalysis w/ reflexes; Complete Time: 19:35 kb 10/09 18:08 Order name: Abdomen Limited US; Complete Time: 19:10 kb 10/09 18:08 Order name: IV Saline Lock; Complete Time: 18:41 kb 10/09 18:08 Order name: Labs collected and sent; Complete Time: 18:41 kb Administered Medications: No medications were administered Disposition Summary: 10/09/22 19:36 Discharge Ordered Location: Home kb Condition: Stable kb Diagnosis - Upper abdominal pain, unspecified kb Followup: kb - With: Emergency Department - When: As needed - Reason: Worsening of condition Followup: kb - With: Private Physician - When: 2 - 3 days - Reason: Recheck today's complaints, Continuance of care, Re-evaluation by your physician Discharge Instructions: - Discharge Summary Sheet kb - Biliary Colic, Adult kb - Abdominal Pain, Adult, [id number] kb Forms: - Medication Reconciliation Form kb - Thank You Letter kb - Antibiotic Education kb - Prescription Opioid Use kb - Patient Portal Instructions kb - Leadership Thank You Letter kb - Work release form mb9 Signatures: Dispatcher [employer] Jinny Bower, PROFESSOR OF PHYSICS-C DEEPA-Ana Maria Hernandez, RN RN aa5
[2022-10-09 20:18] VITALS: TEMP 98
[2022-10-09 20:23] VITALS: BP 137/79; O2SAT 99
== END 2022-10-09 19:45 | disposition home or self-care (01) ==
LOC: ER 17:55
DX: R10.11 Right upper quadrant pain (principal); R11.0 Nausea; Z88.2 Allergy status to sulfonamides
CPT/HCPCS: 36415; 76705; 80053; 81001; 83690; 85025; 99284